=== PATIENT | female | born 1935 | race Caucasian/White ===

== ENCOUNTER 2017-12-02 23:18 | Observation (INO) | payer MEDICARE, BC ==
[2017-12-02] MEDS ORDERED: HYDROmorphone 0.5 MG/0.5 ML Syringe IVPUSH ONE (23:56)
--- NOTE | 2017-12-03 00:17 | EDM.PDOC ---
ED HPI GENERAL MEDICAL PROBLEM - General Chief Complaint: Upper Extremity Injury/Pain Stated Complaint: MED[facility] Time Seen by Provider: 12/02/17 23:45 Source of Information: Reports: Patient, Family History Limitations: Reports: No Limitations - History of Present Illness INITIAL COMMENTS - FREE TEXT/NARRATIVE: 82-year-old female with debilitating left hip pain which is chronic and worsening, was scheduled for hip surgery several months ago but ended up getting a cardiac evaluation including scans, placed on Plavix so the hip surgery is been placed on hold. Over the last several weeks she has become unable to ambulate to get around in her own home, unable to go to the bathroom and her primary caregiver has developed medical problems himself. Her daughter called the [facility] today, they have a bed available and she is hoping she can be admitted tonight for pain control and then a social service consult tomorrow for alf placement. She has no chest pain, shortness of breath, nausea or vomiting or other physical ailments. Onset: Gradual (Symptoms have been ongoing for weeks) Severity: Severe Worsens with: Reports: Movement (Any movement of the left hip causes severe stabbing pain) Left Hip Pain Score (Numeric/FACES): 9 - Related Data Allergies Allergy/AdvReac Type Severity Reaction Status Date / Time azithromycin [From Zithromax] Allergy Headache Verified 12/03/17 01:49 benzocaine Allergy Rash Verified 12/03/17 01:49 [id number] Reductase Allergy Weakness Verified 12/03/17 01:49 Inhibitor Sulfa (Sulfonamide Allergy Chest Pain Verified 12/03/17 01:49 Antibiotics) Home Meds: Home Meds Cholecalciferol (Vitamin D3) [Vitamin D] 5,000 unit PO DAILY 12/08/13 [History] FLUoxetine HCl [Prozac] 20 mg PO DAILY 12/08/13 [History] Losartan [Cozaar] 50 mg PO DAILY 12/08/13 [History] Aspirin 81 mg PO DAILY 12/30/14 [History] Montelukast [Singulair] 10 mg PO BEDTIME 07/19/15 [History] Vitamin E 400 unit PO DAILY 07/19/15 [History] [place]-3/DHA/Epa/Fish Oil [[place] 3 500 Softgel] 1 cap PO DAILY 08/16/15 [History] Clopidogrel [Plavix] 75 mg PO DAILY 08/27/17 [History] Carvedilol 1 tab PO BID 12/03/17 [History] Cetirizine [ZyrTEC] 10 mg PO DAILY 12/03/17 [History] Hydrocodone/Acetaminophen [[place] 10-325 Tablet] 1 tab PO Q6H 12/03/17 [History] Isosorbide Mononitrate [Imdur] 30 mg PO DAILY 12/03/17 [History] [place]-3/DHA/Epa/Fish Oil [Fish Oil 1,000 mg Softgel] 1 each PO DAILY 12/03/17 [ History] atorvaSTATin [Lipitor] 80 mg PO DAILY 12/03/17 [History] Past Medical History HEENT History: Reports: Impaired Vision Cardiovascular History: Reports: Hypertension, Other (See Below) Other Cardiovascular History: has a hole in her heart Respiratory History: Reports: Bronchitis, Recurrent, Pneumonia, Recurrent Oncologic (Cancer) History: Reports: Uterine - Past Surgical History HEENT Surgical History: Reports: Cataract Surgery Musculoskeletal Surgical History: Reports: Hip Replacement, Knee Replacement Review of Systems - Review of Systems Review Of Systems: See Below Constitutional: Denies: Fever Respiratory: Denies: Shortness of Breath Cardiovascular: Denies: Chest Pain GI/Abdominal: Denies: Abdominal Pain Genitourinary: Denies: Dysuria, Hematuria Skin: Denies: Bruising, Rash Neurological: Denies: Paresthesia ED EXAM, GENERAL - Physical Exam Exam: See Below Exam Limited By: No Limitations General Appearance: Alert, No Apparent Distress (Patient is not distress when lying still but even the slightest movement causes significant distress and discomfort) Neck: Supple Respiratory/Chest: No Respiratory Distress, Lungs Clear Cardiovascular: Regular Rate, Rhythm, Extra Beats GI/Abdominal: Soft, Non-Tender Extremities: Pedal Edema (She has symmetric 1+ pedal edema), Other (Patient has severe tenderness to palpation along the lateral left buttock into the sacroiliac area. Any passive range of motion of the hip causes intense pain.) Psychiatric: Normal Affect, Normal Mood Skin Exam: Warm, Dry Course - Vital Signs Last Recorded V/S: Last Vital Signs Temp 98.1 F 12/03/17 01:41 Pulse 66 12/03/17 01:41 Resp 18 12/03/17 01:41 BP 155/52 H 12/03/17 01:41 Pulse Ox 96 12/03/17 01:41 - Orders/Labs/Meds Orders: Medication Orders Acetaminophen (Tylenol) 650 mg PO Q4H PRN PRN Reason: Pain (Mild 1-3)/fever Albuterol (Proventil Neb Soln) 2.5 mg NEB Q4H PRN PRN Reason: Shortness Of Breath/wheezing Aspirin (Halfprin) 81 mg PO DAILY [facility] Atorvastatin Calcium (Lipitor) 80 mg PO DAILY [facility] Carvedilol (Coreg) 6.25 mg PO BID [facility] Cetirizine HCl (Zyrtec) 10 mg PO DAILY [facility] Cholecalciferol (Vitamin D3) 5,000 units PO DAILY [facility] Clopidogrel Bisulfate (Plavix) 75 mg PO DAILY [facility] Docusate Sodium (Colace) 100 mg PO BID PRN PRN Reason: Constipation Fish Oil (Fish Oil) 1 gm PO DAILY [facility] Fluoxetine HCl (Prozac) 20 mg PO DAILY [facility] Hydromorphone HCl (Dilaudid) 0.5 mg IVPUSH Q2H PRN PRN Reason: Pain (moderate 4-6) Ibuprofen (Motrin) 600 mg PO Q6H PRN PRN Reason: Pain/Fever Isosorbide Mononitrate (Imdur) 30 mg PO DAILY [facility] Lorazepam (Ativan) 1 mg IV Q6H PRN PRN Reason: Nausea/Vomiting Losartan Potassium (Cozaar) 50 mg PO DAILY [facility] Melatonin (Melatonin) 6 mg PO BEDTIME [facility] Montelukast Sodium (Singulair) 10 mg PO BEDTIME [facility] Non-Formulary Medication (B12/Levomefolate Calcium/B-6 [Foltx Tablet]) 1 each PO DAILY [facility] Non-Formulary Medication ([facility]-3/Dha/Epa/Fish Oil [Fish Oil 1,000 Mg Softgel]) 1 each PO DAILY [facility] Ondansetron HCl (Zofran Odt) 4 mg PO Q6H PRN PRN Reason: Nausea able to take PO Ondansetron HCl (Zofran) 4 mg IV Q4H PRN PRN Reason: Nausea/Vomiting Oxycodone/Acetaminophen (Percocet 325-5 Mg) 2 tab PO Q4H PRN PRN Reason: Pain (moderate 4-6) Last Admin: 12/03/17 01:46 Dose: 2 tab Pantoprazole Sodium (Protonix) 40 mg PO ACBREAKFAST JEMAL Sodium Chloride (Saline Flush) 10 ml FLUSH ASDIRECTED PRN PRN Reason: Keep Vein Open Triamterene/HCTZ (Maxzide 25-37.5 Mg) 2 each PO DAILY [facility] Vitamin E (Vitamin E) 400 units PO DAILY [facility] Labs: Laboratory Tests 12/02/17 12/02/17 Range/Units 23:57 23:57 WBC 5.3 (4.5-11.0) K/uL RBC 3.55 (3.30-5.50) M/uL Hgb 10.8 L (12.0-15.0) g/dL Hct 34.3 L (36.0-48.0) % MCV 97 (80-98) fL MCH 30 (27-31) pg MCHC 32 (32-36) % Plt Count 178 (150-400) K/uL Neut % (Auto) 62 (36-66) % Lymph % (Auto) 24 (24-44) % [place] % (Auto) 14 H (2-6) % Eos % (Auto) 0 L (2-4) % Baso % (Auto) 0 (0-1) % Sodium 141 (140-148) mmol/L Potassium 3.6 (3.6-5.2) mmol/L Chloride 105 (100-108) mmol/L Carbon Dioxide 25 (21-32) mmol/L Anion Gap 11.5 (5.0-14.0) mmol/L BUN 29 H (7-18) mg/dL Creatinine 0.9 (0.6-1.0) mg/dL Est Cr Clr Drug Dosing 40.55 mL/min Estimated GFR (MDRD) > 60 (>60) Glucose 120 H (74-106) mg/dL Calcium 8.8 (8.5-10.1) mg/dL Total Bilirubin 0.6 D (0.2-1.0) mg/dL AST 23 (15-37) U/L ALT 23 (12-78) U/L Alkaline Phosphatase 68 (46-116) U/L Total Protein 6.9 (6.4-8.2) g/dL Albumin 3.6 (3.4-5.0) g/dL Globulin 3.3 (2.3-3.5) g/dL Albumin/Globulin Ratio 1.1 L (1.2-2.2) Meds: Medications Generic Name Dose Route Start Last Admin Trade Name Freq PRN Reason Stop Dose Admin Acetaminophen 650 mg 12/03/17 01:24 Tylenol PO Q4H PRN Pain (Mild 1-3)/fever Albuterol 2.5 mg 12/03/17 01:24 Proventil Neb Soln NEB Q4H PRN Shortness Of Breath/wheezing Aspirin 81 mg 12/03/17 09:00 Halfprin PO DAILY [facility] Atorvastatin Calcium 80 mg 12/03/17 09:00 Lipitor PO DAILY [facility] Carvedilol 6.25 mg 12/03/17 09:00 Coreg PO BID [facility] Cetirizine HCl 10 mg 12/03/17 09:00 Zyrtec PO DAILY [facility] Cholecalciferol 5,000 units 12/03/17 09:00 Vitamin D3 PO DAILY [facility] Clopidogrel Bisulfate 75 mg 12/03/17 09:00 Plavix PO DAILY [facility] Docusate Sodium 100 mg 12/03/17 01:24 Colace PO BID PRN Constipation Fish Oil 1 gm 12/03/17 09:00 Fish Oil PO DAILY [facility] Fluoxetine HCl 20 mg 12/03/17 09:00 Prozac PO DAILY [facility] Hydromorphone HCl 0.5 mg 12/03/17 01:24 Dilaudid IVPUSH Q2H PRN Pain (moderate 4-6) Ibuprofen 600 mg 12/03/17 01:24 Motrin PO Q6H PRN Pain/Fever Isosorbide Mononitrate 30 mg 12/03/17 09:00 Imdur PO DAILY [facility] Lorazepam 1 mg 12/03/17 01:24 Ativan IV Q6H PRN Nausea/Vomiting Losartan Potassium 50 mg 12/03/17 09:00 Cozaar PO DAILY [facility] Melatonin 6 mg 12/03/17 21:00 Melatonin PO BEDTIME [facility] Montelukast Sodium 10 mg 12/03/17 21:00 Singulair PO BEDTIME [facility] Non-Formulary Medication 1 each 12/03/17 09:00 B12/Levomefolate Calcium/B-6 [Foltx Tablet] PO DAILY [facility] Non-Formulary Medication 1 each 12/03/17 09:00 [facility]-3/Dha/Epa/Fish Oil [Fish Oil 1,000 Mg Softgel] PO DAILY [facility] Ondansetron HCl 4 mg 12/03/17 01:24 Zofran Odt PO Q6H PRN Nausea able to take PO Ondansetron HCl 4 mg 12/03/17 01:24 Zofran IV Q4H PRN Nausea/Vomiting Oxycodone/Acetaminophen 2 tab 12/03/17 01:24 12/03/17 01:46 Percocet 325-5 Mg PO 2 tab Q4H PRN Administration Pain (moderate 4-6) Pantoprazole Sodium 40 mg 12/03/17 07:30 Protonix PO ACBREAKFAST JEMAL Sodium Chloride 10 ml 12/03/17 01:24 Saline Flush FLUSH ASDIRECTED PRN Keep Vein Open Triamterene/HCTZ 2 each 12/03/17 09:00 Maxzide 25-37.5 Mg PO DAILY [facility] Vitamin E 400 units 12/03/17 09:00 Vitamin E PO DAILY [facility] Discontinued Medications Generic Name Dose Route Start Last Admin Trade Name Freq PRN Reason Stop Dose Admin Hydromorphone HCl 0.5 mg 12/02/17 23:56 12/03/17 00:05 Dilaudid IVPUSH 12/02/17 23:57 0.5 mg ONETIME ONE Administration Hydromorphone HCl 0.5 mg 12/03/17 00:52 12/03/17 01:01 Dilaudid IVPUSH 12/03/17 00:53 0.5 mg ONETIME ONE Administration - Re-Assessments/Exams Free Text/Narrative Re-Assessment/Exam: 12/03/17 00:15 CBC and CMP were ordered, patient was given 0.5 mg of IV Dilaudid. I talked to Chey Coles of the hospitalist service to consider admission for pain control and tomorrow the patient can be evaluated by social media manager for placement. Departure - Departure Time of Disposition: 01:44 Disposition: Admitted As Inpatient 67 Condition: Fair Clinical Impression: Hip pain, chronic Qualifiers: Laterality: left Qualified Code(s): M25.552 - Pain in left hip - Discharge Information
[2017-12-03] MEDS ORDERED: HYDROmorphone 0.5 MG/0.5 ML Syringe IVPUSH ONE (00:52)
--- NOTE | 2017-12-03 01:02 | PCM.HP ---
H&P History of Present Illness - General Admit Problem/Dx: Admission Diagnosis/Problem Admission Diagnosis/Problem Hip pain Source of Information: Patient, Family (Son and Daughter in Law) History Limitations: Reports: No Limitations - History of Present Illness Initial Comments - Free Text/Narative: 82-year-old female with debilitating left hip pain which is chronic and worsening, was scheduled for hip surgery several months ago but ended up getting a cardiac evaluation including scans, placed on Plavix so the hip surgery is been placed on hold. Over the last several weeks she has become unable to ambulate to get around in her own home, unable to go to the bathroom and her primary caregiver has developed medical problems himself. Her daughter called the [facility] today, they have a bed available and she is hoping she can be admitted tonight for pain control and then a social service consult tomorrow for fpc placement. She has no chest pain, shortness of breath, nausea or vomiting or other physical ailments. Onset: Gradual (Symptoms have been ongoing for weeks) Severity: Severe Worsens with: Reports: Movement (Any movement of the left hip causes severe stabbing pain) Left Hip Pain Score (Numeric/FACES): 9 - Related Data Allergies Onset of Symptoms: Reports: Gradual Duration of Symptoms: Reports: Week(s):, Getting Worse Location: Reports: Other (left hip) Quality: Reports: Ache, Sharp, Stabbing Severity: Moderate Improves with: Reports: Rest Worsens with: Reports: Movement Context: Reports: Other (has been advised to have left hip replacement, but will need to wait 6 months due to medical condition) Associated Symptoms: Reports: No Other Symptoms Left Hip Pain Score (Numeric/FACES): 9 - Related Data Allergies/Adverse Reactions: Allergies Allergy/AdvReac Type Severity Reaction Status Date / Time azithromycin [From Zithromax] Allergy Headache Verified 12/03/17 00:19 benzocaine Allergy Rash Verified 12/03/17 00:19 [id number] Reductase Allergy Weakness Verified 12/03/17 00:19 Inhibitor Sulfa (Sulfonamide Allergy Chest Pain Verified 12/03/17 00:19 Antibiotics) Home Medications: Home Meds Cholecalciferol (Vitamin D3) [Vitamin D] 5,000 unit PO DAILY 12/08/13 [History] FLUoxetine HCl [Prozac] 20 mg PO DAILY 12/08/13 [History] Losartan [Cozaar] 50 mg PO DAILY 12/08/13 [History] Aspirin 81 mg PO DAILY 12/30/14 [History] Montelukast [Singulair] 10 mg PO BEDTIME 07/19/15 [History] Vitamin E 400 unit PO DAILY 07/19/15 [History] [place]-3/DHA/Epa/Fish Oil [[place] 3 500 Softgel] 1 cap PO DAILY 08/16/15 [History] Clopidogrel [Plavix] 75 mg PO DAILY 08/27/17 [History] Carvedilol 1 tab PO BID 12/03/17 [History] Cetirizine [ZyrTEC] 10 mg PO DAILY 12/03/17 [History] Hydrocodone/Acetaminophen [[place] 10-325 Tablet] 1 tab PO Q6H 12/03/17 [History] Isosorbide Mononitrate [Imdur] 30 mg PO DAILY 12/03/17 [History] [place]-3/DHA/Epa/Fish Oil [Fish Oil 1,000 mg Softgel] 1 each PO DAILY 12/03/17 [ History] atorvaSTATin [Lipitor] 80 mg PO DAILY 12/03/17 [History] Past Medical History HEENT History: Reports: Impaired Vision Cardiovascular History: Reports: Hypertension, Other (See Below) Other Cardiovascular History: has a hole in her heart Respiratory History: Reports: Bronchitis, Recurrent, Pneumonia, Recurrent HALL CLEANER History: Reports: Hematologic History: Reports: Blood Transfusion(s) Oncologic (Cancer) History: Reports: Uterine - Infectious Disease History Infectious Disease History: Reports: Chicken Pox, Measles - Past Surgical History HEENT Surgical History: Reports: Cataract Surgery Cardiovascular Surgical History: Reports: Coronary Artery Stent GI Surgical History: Reports: Appendectomy, Colonoscopy Female Surgical History: Reports: Hysterectomy Musculoskeletal Surgical History: Reports: Carpal Tunnel, Hip Replacement, Knee Replacement, Other (See Below) Other Musculoskeletal Surgeries/Procedures:: Back surgery Social & Family History - Tobacco Use Smoking Status *Q: Never Smoker Second Hand Smoke Exposure: No - Caffeine Use Caffeine Use: Reports: Coffee, Energy Drinks, Soda, Tea - Recreational Drug Use Recreational Drug Use: No - Living Situation & Occupation Living situation: Reports: , with Family (, has 4 Sons.) H&P Review of Systems - Review of Systems: Review Of Systems: See Below General: Reports: Other (left hip pain) HEENT: Reports: Glasses, Other (dentures) Pulmonary: Reports: No Symptoms Cardiovascular: Reports: No Symptoms Gastrointestinal: Reports: No Symptoms Genitourinary: Reports: No Symptoms Musculoskeletal: Reports: Back Pain (low left back ), Other (left hip pain) Skin: Reports: No Symptoms Psychiatric: Reports: No Symptoms Neurological: Reports: No Symptoms Hematologic/Lymphatic: Reports: No Symptoms Immunologic: Reports: Seasonal Allergy Exam - Exam Exam: See Below - Vital Signs Vital Signs: Last Vital Signs Temp 37.0 C 12/03/17 00:27 Pulse 68 12/03/17 00:27 Resp 17 12/03/17 00:27 BP 160/55 H 12/03/17 00:27 Pulse Ox 96 12/03/17 00:27 Weight: 79.832 kg - Exam General: Alert, Oriented, Cooperative, Mild Distress HEENT: PERRLA, Conjunctiva Clear, EACs Clear, EOMI, Hearing Intact, Mucosa Moist & [place], Nares Patent, Normal Nasal Septum, Glasses, Other (dentures) Neck: Supple, Trachea Midline Lungs: Clear to Auscultation, Normal Respiratory Effort Cardiovascular: Regular Rate, Regular Rhythm, Normal S1, Normal S2 GI/Abdominal Exam: Normal Bowel Sounds, Soft, Non-Tender, No Organomegaly, No Mass, Pelvis Stable (Female) Exam: Deferred Rectal (Female) Exam: Deferred Back Exam: Normal Inspection, Full Range of Motion Extremities: Leg Pain (left), Limited Range of Motion, Other (left leg pain with straight leg lift, unable to internal or external rotate left hip. ) Skin: Warm, Dry, Intact Neurological: Normal Speech, Normal Tone, Sensation Intact Neuro Extensive - Mental Status: Alert, Normal Mood/Affect Neuro Extensive - Motor, Sensory, Reflexes: Motor/Sensory Deficits Psychiatric: Alert, Normal Affect, Normal Mood - Patient Data Lab Results Last 24 hrs: Laboratory Results - last 24 hr 12/02/17 12/02/17 Range/Units 23:57 23:57 WBC 5.3 (4.5-11.0) K/uL RBC 3.55 (3.30-5.50) M/uL Hgb 10.8 L (12.0-15.0) g/dL Hct 34.3 L (36.0-48.0) % MCV 97 (80-98) fL MCH 30 (27-31) pg MCHC 32 (32-36) % Plt Count 178 (150-400) K/uL Neut % (Auto) 62 (36-66) % Lymph % (Auto) 24 (24-44) % [place] % (Auto) 14 H (2-6) % Eos % (Auto) 0 L (2-4) % Baso % (Auto) 0 (0-1) % Sodium 141 (140-148) mmol/L Potassium 3.6 (3.6-5.2) mmol/L Chloride 105 (100-108) mmol/L Carbon Dioxide 25 (21-32) mmol/L Anion Gap 11.5 (5.0-14.0) mmol/L BUN 29 H (7-18) mg/dL Creatinine 0.9 (0.6-1.0) mg/dL Est Cr Clr Drug Dosing 40.55 mL/min Estimated GFR (MDRD) > 60 (>60) Glucose 120 H (74-106) mg/dL Calcium 8.8 (8.5-10.1) mg/dL Total Bilirubin 0.6 D (0.2-1.0) mg/dL AST 23 (15-37) U/L ALT 23 (12-78) U/L Alkaline Phosphatase 68 (46-116) U/L Total Protein 6.9 (6.4-8.2) g/dL Albumin 3.6 (3.4-5.0) g/dL Globulin 3.3 (2.3-3.5) g/dL Albumin/Globulin Ratio 1.1 L (1.2-2.2) Result Diagrams: 12/02/17 23:57 12/02/17 23:57 - Problem List (1) Hip pain, chronic SNOMED Code(s): 60673577 ICD Code: M25.559 - PAIN IN UNSPECIFIED HIP; G89.29 - OTHER CHRONIC PAIN Status: Acute Priority: High Current Visit: Yes Qualifiers: Laterality: left Qualified Code(s): M25.552 - Pain in left hip; G89.29 - Other chronic pain (2) Coronary artery disease SNOMED Code(s): 13108836 ICD Code: I25.10 - ATHSCL HEART DISEASE OF [place] CORONARY ARTERY W/O ANG PCTRS Status: Acute Priority: Low Current Visit: Yes Problem List Initiated/Reviewed/Updated: Yes Orders Last 24hrs: Active Orders 24 hr Category Date Time Status Patient Status Manage Transfer [TRANSFER] Routine ADT 12/03/17 00:24 Active Resuscitation Status Routine Resus Stat 12/03/17 00:26 Ordered Assessment/Plan Comment:: Assessment/Plan Comment: 82-year-old female with debilitating left hip pain which is chronic and worsening, was scheduled for hip surgery several months ago but ended up getting a cardiac evaluation including scans, placed on Plavix so the hip surgery is been placed on hold. Over the last several weeks she has become unable to ambulate to get around in her own home, unable to go to the bathroom and her primary caregiver has developed medical problems himself. Her daughter called the [facility] today, they have a bed available and she is hoping she can be admitted tonight for pain control and then a social service consult tomorrow for fpc placement. She has no chest pain, shortness of breath, nausea or vomiting or other physical ailments. Onset: Gradual (Symptoms have been ongoing for weeks) Severity: Severe Worsens with: Reports: Movement (Any movement of the left hip causes severe stabbing pain) Pain Score (Numeric/FACES): 9 -Admit for pain control -OT consult -PT consult -social service, case management for [facility] Placement -order for prn narcotic pain medication as directed -Melatonin at bedtime Coronary artery disease - she has a history of a myocardial infarction with stents x 2, currently taking Plavix. Maintenance issues - - DVT prophylaxis -SCD - GI prophylaxis - PPI - Nutrition - regular diet - [place] catheter - not indicated CODE STATUS - FULL Admission justification - This patient will be admitted for inpatient services and is medically appropriate meeting medical necessity for inpatient admission as outlined in my documentation. I reasonably expect the patient will require inpatient services that span a period time over 2 midnights. I reasonably expect this patient to be discharged or transferred within 96 hours [facility]. Disposition - anticipate discharge to the fpc after the hospital stay Primary care physician - Cyndi Baker NP Hospitialist: Monty Ramirez M.D.
[2017-12-03] MEDS ORDERED: Albuterol 0.083% 2.5 MG/3 ML Neb Soln NEB PRN (01:24)
[2017-12-03] MEDS ORDERED: LORazepam 2 MG/ML SDV IV PRN (01:24)
[2017-12-03] MEDS ORDERED: Ondansetron 4 MG Tab.DIS PO PRN (01:24)
[2017-12-03] MEDS ORDERED: Docusate Sodium 100 MG Cap PO PRN (01:24)
[2017-12-03] MEDS ORDERED: Sodium Chloride 0.9% 10 ML Syringe FLUSH PRN (01:24)
[2017-12-03] MEDS ORDERED: Ondansetron 4 MG/2 ML SDV IV PRN (01:24)
[2017-12-03] MEDS ORDERED: Acetaminophen 325 MG Tab PO PRN (01:24)
[2017-12-03] MEDS ORDERED: HYDROmorphone 0.5 MG/0.5 ML Syringe IVPUSH PRN (01:24)
[2017-12-03] MEDS: Acetaminophen/oxyCODONE 325-5 MG Tab PO PRN ×3 (01:46→22:10)
[2017-12-03] MEDS: Pantoprazole 40 MG Tab.CR PO SCH (08:46)
[2017-12-03] MEDS: atorvaSTATin 20 MG Tab PO SCH (08:46)
[2017-12-03] MEDS: Vitamin E (dl-alpha-tocopherol acetate) 400 Unit Cap PO SCH (08:46)
[2017-12-03] MEDS: Carvedilol 6.25 MG Tab PO SCH ×2 (08:46→20:53)
[2017-12-03] MEDS: Hydrochlorothiazide/Triamterene 25-37.5 Tab PO SCH (08:46)
[2017-12-03] MEDS: Losartan 50 MG Tab PO SCH (08:47)
[2017-12-03] MEDS: Clopidogrel 75 MG Tab PO SCH (08:47)
[2017-12-03] MEDS: FLUoxetine 20 MG Cap PO SCH (08:47)
[2017-12-03] MEDS: Cetirizine 10 MG Tab PO SCH (08:47)
[2017-12-03] MEDS: Vitamin B Complex Tab PO SCH (08:47)
[2017-12-03] MEDS: Fish Oil/Omega-3 Fatty Acids 1 Gm Cap PO SCH (08:47)
[2017-12-03] MEDS: Isosorbide Mononitrate 30 MG Tab.ER PO SCH (08:47)
[2017-12-03] MEDS: Aspirin 81 MG Tab.EC PO SCH (08:47)
[2017-12-03] MEDS: Cholecalciferol (Vitamin D3) 1,000 Unit Tab PO SCH (08:47)
[2017-12-03] MEDS ORDERED: Fish Oil/Omega-3 Fatty Acids 1 Gm Cap PO SCH (09:00)
[2017-12-03] MEDS ORDERED: oxyCODONE 5 MG Tab PO PRN (10:42)
--- NOTE | 2017-12-03 10:52 | PCM.PN ---
- General Info Date of Service: 12/03/17 Subjective Update: Ms. Sanchez is an 82-year-old woman who was admitted through the emergency department last night with severe left hip pain. She has had a known history of osteoarthritis the left hip, but reports that the pain became suddenly worse yesterday morning on standing. Pain was so severe that she was unable to function or transfer at home. - Review of Systems General: Reports: Weakness. Denies: Fever, Chills Pulmonary: Reports: No Symptoms Cardiovascular: Reports: No Symptoms Gastrointestinal: Reports: No Symptoms Musculoskeletal: Reports: Other (Severe pain left hip) - Patient Data Vitals - Most Recent: Last Vital Signs Temp 96.9 F 12/03/17 08:13 Pulse 58 L 12/03/17 08:13 Resp 16 12/03/17 08:13 BP 149/52 H 12/03/17 08:13 Pulse Ox 97 12/03/17 08:13 Weight - Most Recent: 172 lb 6.4 oz I&O - Last 24 Hours: Intake & Output 12/02/17 12/03/17 12/03/17 22:59 06:59 14:59 Output Total 200 Balance -200 Lab Results Last 24 Hours: Laboratory Results - last 24 hr 12/02/17 12/02/17 Range/Units 23:57 23:57 WBC 5.3 (4.5-11.0) K/uL RBC 3.55 (3.30-5.50) M/uL Hgb 10.8 L (12.0-15.0) g/dL Hct 34.3 L (36.0-48.0) % MCV 97 (80-98) fL MCH 30 (27-31) pg MCHC 32 (32-36) % Plt Count 178 (150-400) K/uL Neut % (Auto) 62 (36-66) % Lymph % (Auto) 24 (24-44) % [place] % (Auto) 14 H (2-6) % Eos % (Auto) 0 L (2-4) % Baso % (Auto) 0 (0-1) % Sodium 141 (140-148) mmol/L Potassium 3.6 (3.6-5.2) mmol/L Chloride 105 (100-108) mmol/L Carbon Dioxide 25 (21-32) mmol/L Anion Gap 11.5 (5.0-14.0) mmol/L BUN 29 H (7-18) mg/dL Creatinine 0.9 (0.6-1.0) mg/dL Est Cr Clr Drug Dosing 40.55 mL/min Estimated GFR (MDRD) > 60 (>60) Glucose 120 H (74-106) mg/dL Calcium 8.8 (8.5-10.1) mg/dL Total Bilirubin 0.6 D (0.2-1.0) mg/dL AST 23 (15-37) U/L ALT 23 (12-78) U/L Alkaline Phosphatase 68 (46-116) U/L Total Protein 6.9 (6.4-8.2) g/dL Albumin 3.6 (3.4-5.0) g/dL Globulin 3.3 (2.3-3.5) g/dL Albumin/Globulin Ratio 1.1 L (1.2-2.2) Med Orders - Current: Current Medications Acetaminophen (Tylenol) 650 mg PO Q4H PRN PRN Reason: Pain (Mild 1-3)/fever Albuterol (Proventil Neb Soln) 2.5 mg NEB Q4H PRN PRN Reason: Shortness Of Breath/wheezing Aspirin (Halfprin) 81 mg PO DAILY [facility] Last Admin: 12/03/17 08:47 Dose: 81 mg Atorvastatin Calcium (Lipitor) 80 mg PO DAILY [facility] Last Admin: 12/03/17 08:46 Dose: 80 mg Carvedilol (Coreg) 6.25 mg PO BID [facility] Last Admin: 12/03/17 08:46 Dose: 6.25 mg Cetirizine HCl (Zyrtec) 10 mg PO DAILY [facility] Last Admin: 12/03/17 08:47 Dose: 10 mg Cholecalciferol (Vitamin D3) 5,000 units PO DAILY [facility] Last Admin: 12/03/17 08:47 Dose: 5,000 units Clopidogrel Bisulfate (Plavix) 75 mg PO DAILY [facility] Last Admin: 12/03/17 08:47 Dose: 75 mg Docusate Sodium (Colace) 100 mg PO BID PRN PRN Reason: Constipation Fish Oil (Fish Oil) 1 gm PO DAILY [facility] Last Admin: 12/03/17 08:47 Dose: 1 gm Fluoxetine HCl (Prozac) 20 mg PO DAILY [facility] Last Admin: 12/03/17 08:47 Dose: 20 mg Ibuprofen (Motrin) 600 mg PO Q6H PRN PRN Reason: Pain/Fever Isosorbide Mononitrate (Imdur) 30 mg PO DAILY [facility] Last Admin: 12/03/17 08:47 Dose: 30 mg Lorazepam (Ativan) 1 mg IV Q6H PRN PRN Reason: Nausea/Vomiting Losartan Potassium (Cozaar) 50 mg PO DAILY [facility] Last Admin: 12/03/17 08:47 Dose: 50 mg Melatonin (Melatonin) 6 mg PO BEDTIME [facility] Montelukast Sodium (Singulair) 10 mg PO BEDTIME [facility] Ondansetron HCl (Zofran Odt) 4 mg PO Q6H PRN PRN Reason: Nausea able to take PO Ondansetron HCl (Zofran) 4 mg IV Q4H PRN PRN Reason: Nausea/Vomiting Oxycodone HCl (Oxycodone) 0 mg PO Q4H PRN PRN Reason: Pain Oxycodone/Acetaminophen (Percocet 325-5 Mg) 2 tab PO Q4H PRN PRN Reason: Pain (moderate 4-6) Last Admin: 12/03/17 09:13 Dose: 2 tab Pantoprazole Sodium (Protonix) 40 mg PO ACBREAKFAST [facility] Last Admin: 12/03/17 08:46 Dose: 40 mg Sodium Chloride (Saline Flush) 10 ml FLUSH ASDIRECTED PRN PRN Reason: Keep Vein Open Triamterene/HCTZ (Maxzide 25-37.5 Mg) 2 each PO DAILY [facility] Last Admin: 12/03/17 08:46 Dose: 2 each Vitamin B Complex (Vitamin B Complex) 1 each PO DAILY [facility] Last Admin: 12/03/17 08:47 Dose: 1 each Vitamin E (Vitamin E) 400 units PO DAILY [facility] Last Admin: 12/03/17 08:46 Dose: 400 units Discontinued Medications Hydromorphone HCl (Dilaudid) 0.5 mg IVPUSH ONETIME ONE Stop: 12/02/17 23:57 Last Admin: 12/03/17 00:05 Dose: 0.5 mg Hydromorphone HCl (Dilaudid) 0.5 mg IVPUSH ONETIME ONE Stop: 12/03/17 00:53 Last Admin: 12/03/17 01:01 Dose: 0.5 mg Hydromorphone HCl (Dilaudid) 0.5 mg IVPUSH Q2H PRN PRN Reason: Pain (moderate 4-6) - Exam General: Alert, Oriented, Cooperative, Mild Distress Lungs: Clear to Auscultation, Normal Respiratory Effort Cardiovascular: Regular Rate, Regular Rhythm, No Murmurs GI/Abdominal Exam: Soft, Non-Tender, No Organomegaly, No Distention Extremities: Non-Tender, No Pedal Edema Skin: Warm, Dry, Intact - Problem List Review Problem List Initiated/Reviewed/Updated: Yes - My Orders Last 24 Hours: My Active Orders 12/03/17 10:40 Hip wo Cont Lt [CT] Urgent 12/03/17 10:42 oxyCODONE See Dose Instructions PO Q4H PRN 12/03/17 10:43 Patient Status [ADT] Routine - Plan Plan:: Assessment/Plan Severe left hip pain-previous history of significant osteoarthritis, abrupt increase in pain yesterday morning -CT scan of the left hip, to rule out fracture -OT consult -PT consult -social service, case management for Correction Placement -order for prn narcotic pain medication as directed -Melatonin at bedtime Coronary artery disease -currently asymptomatic -Continue outpatient medical management Maintenance issues - - DVT prophylaxis -SCD - GI prophylaxis - PPI - Nutrition - regular diet - [place] catheter - not indicated CODE STATUS - FULL Admission justification - This patient will be admitted for inpatient services and is medically appropriate meeting medical necessity for inpatient admission as outlined in my documentation. I reasonably expect the patient will require inpatient services that span a period time over 2 midnights. I reasonably expect this patient to be discharged or transferred within 96 hours [facility]. Disposition - anticipate discharge to the long term after the hospital stay Primary care physician - Cyndi Baker NP Hospitialist: Monty Ramirez M.D.
[2017-12-03] MEDS: Ibuprofen 600 MG Tab PO PRN ×2 (12:08→20:53)
--- NOTE | 2017-12-03 14:11 | CT ---
Left hip CT. History: Left hip pain. Osteoarthritis. Abrupt onset of more severe pain. Technique: Axial images were obtained through the left hip and pelvis. Coronal and sagittal images we re reconstructed. Total DLP: 311. Findings: There is diffuse demineralization. There is severe osteoarthritis of the hip. There is tota l loss of the superior joint space. There is sclerosis and subcortical cystic changes of the acetabul um and femoral head. Marginal osteophytes are formed. There is no evidence of fracture of the hip or pelvis. The left sacrum is intact. Impression: 1. Severe left hip osteoarthritis.
[2017-12-03] MEDS ORDERED: Bisacodyl 10 MG Supp RECTAL ONE (20:32)
--- NOTE | 2017-12-03 20:57 | PCM.SN ---
- Free Text/Narrative Note: TIME 8:30 PM call from 2 N. nursing S/O: requesting laxative for bowel movement A: constipation P: Dulcolax suppository rectal as directed
[2017-12-03] MEDS ORDERED: Melatonin 3 MG Tab PO SCH (21:00)
[2017-12-03] MEDS ORDERED: Montelukast 10 MG Tab PO SCH (21:00)
[2017-12-04] MEDS: Pantoprazole 40 MG Tab.CR PO SCH (08:26)
[2017-12-04] MEDS: Isosorbide Mononitrate 30 MG Tab.ER PO SCH (08:27)
[2017-12-04] MEDS: Aspirin 81 MG Tab.EC PO SCH (08:27)
[2017-12-04] MEDS: FLUoxetine 20 MG Cap PO SCH (08:27)
[2017-12-04] MEDS: Clopidogrel 75 MG Tab PO SCH (08:28)
[2017-12-04] MEDS: Cetirizine 10 MG Tab PO SCH (08:28)
[2017-12-04] MEDS: Vitamin E (dl-alpha-tocopherol acetate) 400 Unit Cap PO SCH (08:28)
[2017-12-04] MEDS: Cholecalciferol (Vitamin D3) 1,000 Unit Tab PO SCH (08:28)
[2017-12-04] MEDS: atorvaSTATin 20 MG Tab PO SCH (08:28)
[2017-12-04] MEDS: Fish Oil/Omega-3 Fatty Acids 1 Gm Cap PO SCH (08:28)
[2017-12-04] MEDS: Carvedilol 6.25 MG Tab PO SCH (08:28)
[2017-12-04] MEDS: Hydrochlorothiazide/Triamterene 25-37.5 Tab PO SCH (08:28)
[2017-12-04] MEDS: Losartan 50 MG Tab PO SCH (08:29)
[2017-12-04] MEDS: Vitamin B Complex Tab PO SCH (08:33)
[2017-12-04] MEDS: Acetaminophen/oxyCODONE 325-5 MG Tab PO PRN (10:41)
--- NOTE | 2017-12-04 10:42 | PCM.DCSUM1 ---
Discharge Summary - Hospital Course Brief History: Ms. Sanchez is an 82-year-old woman who is admitted to observation status through the emergency department because of increasing chronic left hip pain secondary to osteoarthritis. - Discharge Data Discharge Date: 12/04/17 Discharge Disposition: DC/Tfer to Acute Hospital 02 Condition: Fair - Discharge Diagnosis/Problem(s) (1) Osteoarthritis of left hip SNOMED Code(s): 718708231839232 ICD Code: M16.12 - UNILATERAL PRIMARY OSTEOARTHRITIS, LEFT HIP Status: Acute Current Visit: Yes (2) Hip pain, chronic SNOMED Code(s): 47110761 ICD Code: M25.559 - PAIN IN UNSPECIFIED HIP; G89.29 - OTHER CHRONIC PAIN Status: Acute Priority: High Current Visit: Yes Qualifiers: Laterality: left Qualified Code(s): M25.552 - Pain in left hip; G89.29 - Other chronic pain (3) Coronary artery disease SNOMED Code(s): 40717657 ICD Code: I25.10 - ATHSCL HEART DISEASE OF [place] CORONARY ARTERY W/O ANG PCTRS Status: Acute Priority: Low Current Visit: Yes (4) CKD (chronic kidney disease), stage III SNOMED Code(s): 947239774 ICD Code: N18.3 - CHRONIC KIDNEY DISEASE, STAGE 3 (MODERATE) Status: Chronic Current Visit: No - Patient Summary/Data Consults: Consultations 12/03/17 01:24 Consult to Case Management [CONS] Routine Comment: Physician Instructions: Quantity: Reason for Consult: Residential Placement; [facility] Consult to [facility] [CONS] Routine Comment: Physician Instructions: OT Evaluation and Treatment [CONS] Routine Please Evaluate and Treat. OT Reason for Consult: Discharge Planning Special Instructions: acute and chronic left hip pain This query below is only for informational purposes and is not editable. Admission Diagnosis/Problem: Hip pain PT Evaluation and Treatment [CONS] Routine Please Evaluate and Treat. PT Reason for Consult: Ambulation Special Instructions: acute and chronic left hip pain This query below is only for informational purposes and is not editable. Admission Diagnosis/Problem: Hip pain Hospital Course: 82-year-old female with debilitating left hip pain which is chronic and worsening, was scheduled for hip surgery several months ago but ended up getting a cardiac evaluation including scans, placed on Plavix so the hip surgery is been placed on hold. Over the last several weeks she has become unable to ambulate to get around in her own home, unable to go to the bathroom and her primary caregiver has developed medical problems himself. Her daughter called the [facility], they have a bed available and she is hoping she can be admitted for pain control and then a social service consult for half-way placement. She has no chest pain, shortness of breath, nausea or vomiting or other physical ailments. Veronique was admitted to the hospital on observation status and given pain medication as needed for management of the increased left hip pain. She had reported relatively abrupt increase in pain so CT scan of the hip was obtained to rule out fracture. Scan showed no evidence of significant fracture but did document severe underlying osteoarthritis of the hip. She will be discharged to the half-way for physical therapy and occupational therapy. Activity will be as tolerated and she will resume her usual diet. - Patient Instructions Diet: Usual Diet as Tolerated Activity: As Tolerated Other/Special Instructions: Daily physical therapy and occupational therapy while at the half-way. - Discharge Plan Home Medications: Home Meds Cholecalciferol (Vitamin D3) [Vitamin D3] 5,000 unit PO DAILY 12/08/13 [History] FLUoxetine HCl [Prozac] 20 mg PO DAILY 12/08/13 [History] Losartan [Cozaar] 50 mg PO DAILY 12/08/13 [History] Aspirin 81 mg PO DAILY 12/30/14 [History] Montelukast [Singulair] 10 mg PO BEDTIME 07/19/15 [History] Vitamin E 400 unit PO DAILY 07/19/15 [History] [place]-3/DHA/Epa/Fish Oil [[place] 3 500 Softgel] 1 cap PO DAILY 08/16/15 [History] Clopidogrel [Plavix] 75 mg PO DAILY 08/27/17 [History] Carvedilol 1 tab PO BID 12/03/17 [History] Cetirizine [ZyrTEC] 10 mg PO DAILY 12/03/17 [History] Hydrocodone/Acetaminophen [[place] 10-325 Tablet] 1 tab PO Q6H 12/03/17 [History] Isosorbide Mononitrate [Imdur] 30 mg PO DAILY 12/03/17 [History] [place]-3/DHA/Epa/Fish Oil [Fish Oil 1,000 mg Softgel] 1 each PO DAILY 12/03/17 [ History] atorvaSTATin [Lipitor] 80 mg PO DAILY 12/03/17 [History] Referrals: Cyndi Baker PA [Primary Care Provider] - - Discharge Summary/Plan Comment DC Time >30 min.: No - Patient Data Vitals - Most Recent: Last Vital Signs Temp 97.8 F 12/04/17 07:19 Pulse 58 L 12/04/17 08:28 Resp 16 12/04/17 07:19 BP 159/56 H 12/04/17 08:29 Pulse Ox 98 12/04/17 07:19 Weight - Most Recent: 172 lb 6.388 oz I&O - Last 24 hours: Intake & Output 12/03/17 12/04/17 12/04/17 22:59 06:59 14:59 Intake Total 500 500 Output Total 200 Balance 500 300 Lab Results - Last 24 hrs: Laboratory Results - last 24 hr 12/03/17 Range/Units 05:11 Urine Color Yellow Urine Appearance Slightly cloudy Urine pH 5.0 (4.5-8.0) Ur Specific [place] 1.015 (1.008-1.030) Urine Protein Trace (NEGATIVE) mg/dL Urine Glucose (UA) Normal (NEGATIVE) mg/dL Urine Ketones 15 H (NEGATIVE) mg/dL Urine Occult Blood Negative (NEGATIVE) Urine Nitrite Negative (NEGATIVE) Urine Bilirubin Small (NEGATIVE) Urine Urobilinogen 1 (NORMAL) mg/dL Ur Leukocyte Esterase Negative (NEGATIVE) Urine RBC Not seen (0-5) Urine WBC Not seen (0-5) Ur Epithelial Cells Rare Amorphous Sediment Rare Urine Bacteria Not seen Urine Mucus Not seen Med Orders - Current: Current Medications Acetaminophen (Tylenol) 650 mg PO Q4H PRN PRN Reason: Pain (Mild 1-3)/fever Albuterol (Proventil Neb Soln) 2.5 mg NEB Q4H PRN PRN Reason: Shortness Of Breath/wheezing Aspirin (Halfprin) 81 mg PO DAILY [facility] Last Admin: 12/04/17 08:27 Dose: 81 mg Atorvastatin Calcium (Lipitor) 80 mg PO DAILY [facility] Last Admin: 12/04/17 08:28 Dose: 80 mg Carvedilol (Coreg) 6.25 mg PO BID [facility] Last Admin: 12/04/17 08:28 Dose: 6.25 mg Cetirizine HCl (Zyrtec) 10 mg PO DAILY [facility] Last Admin: 12/04/17 08:28 Dose: 10 mg Cholecalciferol (Vitamin D3) 5,000 units PO DAILY [facility] Last Admin: 12/04/17 08:28 Dose: 5,000 units Clopidogrel Bisulfate (Plavix) 75 mg PO DAILY [facility] Last Admin: 12/04/17 08:28 Dose: 75 mg Docusate Sodium (Colace) 100 mg PO BID PRN PRN Reason: Constipation Last Admin: 12/03/17 17:54 Dose: 100 mg Fish Oil (Fish Oil) 1 gm PO DAILY [facility] Last Admin: 12/04/17 08:28 Dose: 1 gm Fluoxetine HCl (Prozac) 20 mg PO DAILY [facility] Last Admin: 12/04/17 08:27 Dose: 20 mg Ibuprofen (Motrin) 600 mg PO Q6H PRN PRN Reason: Pain/Fever Last Admin: 12/03/17 20:53 Dose: 600 mg Isosorbide Mononitrate (Imdur) 30 mg PO DAILY [facility] Last Admin: 12/04/17 08:27 Dose: 30 mg Lorazepam (Ativan) 1 mg IV Q6H PRN PRN Reason: Nausea/Vomiting Losartan Potassium (Cozaar) 50 mg PO DAILY [facility] Last Admin: 12/04/17 08:29 Dose: 50 mg Melatonin (Melatonin) 6 mg PO BEDTIME [facility] Last Admin: 12/03/17 20:48 Dose: 6 mg Montelukast Sodium (Singulair) 10 mg PO BEDTIME [facility] Last Admin: 12/03/17 20:50 Dose: 10 mg Ondansetron HCl (Zofran Odt) 4 mg PO Q6H PRN PRN Reason: Nausea able to take PO Ondansetron HCl (Zofran) 4 mg IV Q4H PRN PRN Reason: Nausea/Vomiting Oxycodone HCl (Oxycodone) 5 - 10 mg PO Q4H PRN PRN Reason: Pain Oxycodone/Acetaminophen (Percocet 325-5 Mg) 2 tab PO Q4H PRN PRN Reason: Pain (moderate 4-6) Last Admin: 12/03/17 22:10 Dose: 1 tab Pantoprazole Sodium (Protonix) 40 mg PO ACBREAKFAST [facility] Last Admin: 12/04/17 08:26 Dose: 40 mg Sodium Chloride (Saline Flush) 10 ml FLUSH ASDIRECTED PRN PRN Reason: Keep Vein Open Triamterene/HCTZ (Maxzide 25-37.5 Mg) 2 each PO DAILY [facility] Last Admin: 12/04/17 08:28 Dose: 2 each Vitamin B Complex (Vitamin B Complex) 1 each PO DAILY [facility] Last Admin: 12/04/17 08:33 Dose: 1 each Vitamin E (Vitamin E) 400 units PO DAILY [facility] Last Admin: 12/04/17 08:28 Dose: 400 units Discontinued Medications Bisacodyl (Dulcolax) 10 mg RECTAL ONETIME ONE Stop: 12/03/17 20:33 Last Admin: 12/03/17 20:53 Dose: 10 mg Hydromorphone HCl (Dilaudid) 0.5 mg IVPUSH ONETIME ONE Stop: 12/02/17 23:57 Last Admin: 12/03/17 00:05 Dose: 0.5 mg Hydromorphone HCl (Dilaudid) 0.5 mg IVPUSH ONETIME ONE Stop: 12/03/17 00:53 Last Admin: 12/03/17 01:01 Dose: 0.5 mg Hydromorphone HCl (Dilaudid) 0.5 mg IVPUSH Q2H PRN PRN Reason: Pain (moderate 4-6) - Exam General: Reports: Alert, Oriented, Cooperative, Mild Distress Lungs: Reports: Clear to Auscultation, Normal Respiratory Effort Cardiovascular: Reports: Regular Rate, Regular Rhythm, No Murmurs GI/Abdominal Exam: Soft, Non-Tender, No Organomegaly, No Distention
[2017-12-04 10:45] VITALS: BP 111/50
== END 2017-12-04 11:00 ==
LOC: JP.ED 23:18 → JP.MS 12-03 00:24 → UNDOADMIN 12-03 00:24 → UNDODISIN 12-04 11:00
PROVIDERS: ADMIT Hospitalist; ATTEND Hospitalist
DX: M16.12 Unilateral primary osteoarthritis, left hip (principal); I12.9 Hypertensive chronic kidney disease with stage 1 through stage 4 chronic kidney disease, or unspecified chronic kidney disease; N18.3 Chronic kidney disease, stage 3 (moderate); G89.29 Other chronic pain; I25.10 Atherosclerotic heart disease of native coronary artery without angina pectoris; Z79.899 Other long term (current) drug therapy; Z79.82 Long term (current) use of aspirin; Z79.01 Long term (current) use of anticoagulants; Z88.1 Allergy status to other antibiotic agents; Z88.8 Allergy status to other drugs, medicaments and biological substances; Z88.2 Allergy status to sulfonamides; Z95.5 Presence of coronary angioplasty implant and graft
CPT/HCPCS: 36415; 73700; 80053; 81001; 85025; 96374; 96376; 97162; 97165; 97530; 99284; A9270; J1170; G0378

== ENCOUNTER 2018-11-25 09:34 | Outpatient (CLI) | payer MEDICARE ==
[2018-11-25] MEDS ORDERED: Bupivacaine 0.25% 10 ML SDV ONE (09:35)
[2018-11-25] MEDS ORDERED: methylPREDNISolone Acetate 80 MG/ML SDV ONE (09:35)
[2018-11-25 10:05] VITALS: PULSE 58
[2018-11-25 10:27] VITALS: BP 182/75
--- NOTE | 2018-11-25 11:28 | ANES ---
DATE OF SERVICE: 11/25/2018 INDICATION: Suellen is an 83-year-old female patient referred to us by Dr. Samaniego for epidural steroid injections today. The last one was about two years ago. Has since had back surgery and continuing to have back pain that has come back. MRI noted to have some minor disk bulging in L5-S1 and L3-L4, L2-L3 also. The patient like I said has had them before. Risks and benefits were again reviewed with the patient. The patient verbalized her understanding of the procedure and the risks and benefits. She has been off Plavix for more than a month now and wishes to proceed with the epidural steroid injection today. Please refer to the doctor's notes for ICD-10 code and diagnosis. TECHNIQUE: The patient was then sat at the edge of the bed. It was noticed that she does not have much for spinous processes from L2 through L4, so I went down a level to the L5-S1 in order to try to effectively get into her epidural space. Betadine prep was used. Sterile drape was placed. 1% lidocaine skin wheal and deep was done. A 17-gauge Tuohy needle was inserted at approximately the L5-S1 position. Loss of resistance was achieved. Negative paresthesia, negative heme, and negative CSF were noted. I then proceeded to give 7 mL of sterile normal saline with 2 mL of 0.25% Sensorcaine and 1 mL of 80 mg Depo-Medrol. The patient tolerated the injection with some discomfort. Touhy needle was then flushed and withdrawn. Sterile drape was taken down. Betadine was cleaned off her back and a Band-Aid was applied to the puncture site for hemostasis. The patient tolerated the procedure without difficulty. Please refer to the nurse's notes for vital signs. After the appropriate amount of time, patient will be discharged per ACU protocol. Leon Alvarez CRNA /[id number]
== END 2018-11-25 10:44 | disposition home or self-care (01) ==
LOC: JP.PAIN 09:34
PROVIDERS: ATTEND Orthopaedic Surgery
DX: M51.37 Other intervertebral disc degeneration, lumbosacral region (principal)
CPT/HCPCS: 62322; J1040; J3490

== ENCOUNTER 2024-06-05 11:24 | Emergency (ER) | payer MEDICARE ==
[2024-06-05 12:04] VITALS: PULSE 70
[2024-06-05 12:27] LABS: BASOPHILS PERCENT AUTO 0.2 % (0.1-1.3); EOSINOPHILS ABSOLUTE AUTO 0.06 K/uL (0.00-0.40); HEMATOCRIT 32.6 % (34.3-46.0); HEMOGLOBIN 10.6 g/dL (11.2-15.5); LYMPHOCYTES ABSOLUTE AUTO 4.04 K/uL (0.8-3.3); LYMPHOCYTES PERCENT AUTO 70.6 % (11.4-47.7); MEAN CORPUSCULAR HEMOGLOBIN 32.6 pg (31.6-35.5); MEAN CORPUSCULAR HGB CONC 32.5 g/dL (31.6-35.5); MEAN CORPUSCULAR VOLUME 100.3 fL (81.4-99.0); MONOCYTES ABSOLUTE AUTO 0.41 K/uL (0.20-0.90); MONOCYTES PERCENT AUTO 7.2 % (3.3-12.6); PLATELET COUNT,PLT 139 K/uL (130-375); RED BLOOD CELL COUNT 3.25 M/uL (3.77-5.24); WHITE BLOOD CELL COUNT,WBC 5.7 K/uL (3.2-11.0)
[2024-06-05 12:28] LABS: BASOPHILS ABSOLUTE AUTO 0.01 K/uL (0.00-0.10)
[2024-06-05 12:49] LABS: ALANINE AMINOTRANSFERASE,ALT 33 U/L (12-78); ALBUMIN 3.5 g/dL (3.4-5.0); ALKALINE PHOSPHATASE 40 U/L (46-116); ANION GAP 9.5 mmol/L (5.0-14.0); ASPARTATE AMNIOTRANSFERASE,AST 30 U/L (15-37); BILIRUBIN TOTAL 0.6 mg/dL (0.2-1.0); BLOOD UREA NITROGEN,BUN 27 mg/dL (7-18); C-REACTIVE PROTEIN < 0.50 mg/dL (<0.50); CALCIUM 9.6 mg/dL (8.5-10.1); CARBON DIOXIDE,CO2 27 mmol/L (21-32); CHLORIDE,CL 104 mmol/L (100-108); CREATININE 1.2 mg/dL (0.6-1.0); ESTIMATED GFR 44 mL/min (>60); GLUCOSE RANDOM 101 mg/dL (74-106); POTASSIUM,K 3.8 mmol/L (3.6-5.2); SODIUM,NA 140 mmol/L (140-148)
[2024-06-05 14:12] LABS: APPEARANCE,URINE SLIGHTLY CLOUDY (CLEAR); BILIRUBIN,URINE NEGATIVE (NEGATIVE); COLOR,URINE YELLOW (YELLOW); GLUCOSE,URINE NEGATIVE (NEGATIVE); KETONES,URINE NEGATIVE (NEGATIVE); LEUKOCYTE ESTERASE,URINE TRACE (NEGATIVE); NITRITE,URINE NEGATIVE (NEGATIVE); OCCULT BLOOD,URINE NEGATIVE (NEGATIVE); PH,URINE 5.5 (5.0-8.0); PROTEIN,URINE 100 mg/dL (NEGATIVE); UROBILINOGEN,URINE 0.2 EU/dL (0.2-1.0)
[2024-06-05 14:15] LABS: AMORPHOUS SEDIMENT,URINE NOT SEEN; BACTERIA,URINE MODERATE; EPITHELIAL CELLS,URINE FEW; MUCUS,URINE FEW; RBC,URINE 0-5 (0-5); WBC,URINE 0-5 (0-5)
[2024-06-05 14:48] VITALS: BP 165/63
[2024-06-05] MEDS: amLODIPine 5 MG Tab PO ONE (14:48)
== END 2024-06-05 15:46 | disposition home or self-care (01) ==
LOC: JP.ED 11:24
DX: N30.00 Acute cystitis without hematuria (principal); R25.3 Fasciculation; I10 Essential (primary) hypertension; Z90.49 Acquired absence of other specified parts of digestive tract; Z90.710 Acquired absence of both cervix and uterus; Z79.899 Other long term (current) drug therapy; Z79.82 Long term (current) use of aspirin; Z88.2 Allergy status to sulfonamides; Z88.8 Allergy status to other drugs, medicaments and biological substances; Z88.1 Allergy status to other antibiotic agents; Z88.5 Allergy status to narcotic agent
CPT/HCPCS: 36415; 80053; 81001; 85025; 86140; 99284; A9270; 99283